=== PATIENT | female | born 1950 | race Caucasian/White ===

== ENCOUNTER → 2017-09-25 | Outpatient (CLI) | payer MEDICARE, BC ==
--- NOTE | 2017-09-25 09:10 | Diagnostic Imaging Report ---
PROCEDURE:ABDOMINAL ULTRASOUND COMPARISON:None. INDICATIONS:Epigastric Pain, Dyspepsia, Personal HX Colon Polyps TECHNIQUE: Diaz scale and color Doppler ultrasound FINDINGS: Image segment of the inferior vena cava and abdominal aorta are of normal caliber. Normal pancreas. Right liver span 13.8 cm. Mild increased proximal echogenicity. Portal vein diameter 0.8 cm; normal flow direction. Normal gallbladder. Several noncalcified, avascular nodules at the gallbladder fundus measuring up to 0.6 cm in diameter. At least one of these contains a polypoid appearing stalk (though no conspicuous vasculature). Wall thickness 0.3 cm. Common bile that diameter and 0.3 cm. Right kidney: 9.9 cm span Left kidney: 10.2 cm span. Both kidneys are normal. Spleen length 7.3 cm. No ascites. CONCLUSION: 1. Mild hepatic steatosis. 2. Several polypoid nodules within the gallbladder. These may represent noncalcified adherent stones or avascular polyps. Given polypoid appearance, followup evaluation in one year is recommended. Dictated by: Karan Baker M.D. on 09/25/2017 at 9:13 Electronically approved by: Karan Baker M.D. on 09/25/2017 at 9:13
== END ==
LOC: US 08:11
PROVIDERS: ATTEND Internal Medicine Gastroenterology
DX: R10.13 Epigastric pain (principal); K30 Functional dyspepsia; E66.3 Overweight; Z71.3 Dietary counseling and surveillance; Z86.010 Personal history of colon polyps
CPT/HCPCS: 76700

== ENCOUNTER 2017-09-27 14:17 | Emergency (ER) | payer MEDICARE, BC ==
[~2017-09-27] VITALS: Ht 160 cm; Wt 67.1 kg
--- NOTE | 2017-09-27 15:32 | Diagnostic Imaging Report ---
PROCEDURE: A single AP view of the chest. COMPARISON: None. INDICATIONS: RAPID HEARTRATE FINDINGS: Lines/tubes: None. Lungs: The lungs are well inflated and clear. There is no evidence of pneumonia or pulmonary edema. Pleura: There is no pleural effusion or pneumothorax. Heart and mediastinum: The heart and the mediastinum are unremarkable. Calcification of the aortic arch. Bones: No acute bony abnormality. IMPRESSION: 1. No acute cardiopulmonary disease. Anneliese Reese M.D. Dictated by: Anneliese Reese M.D. on 09/27/2017 at 15:35 Electronically approved by: Anneliese Reese M.D. on 09/27/2017 at 15:35
[2017-09-27 15:33] LABS: BASOPHILS % 0.3 % (0.0-1.0); EOSINOPHILS # (AUTO) 0.1 (0.0-0.4); HEMATOCRIT 43.7 % (34.2-44.1); HEMOGLOBIN 14.5 g/dL (12.0-16.0); LYMPHOCYTES # (AUTO) 2.5 (1.0-3.2); LYMPHOCYTES % 21.4 % (18.0-39.1); MEAN CORPUSCULAR HEMOGLOBIN 29.3 pg (28-32); MEAN CORPUSCULAR HGB CONC 33.2 g/dL (31-35); MEAN CORPUSCULAR VOLUME 88.3 fL (81-99); MONOCYTES # (AUTO) 0.8 (0.2-0.8); MONOCYTES % 7.3 % (4.4-11.3); NEUTROPHILS % 69.7 % (38.7-80.0); PLATELET COUNT 347 x10e3/uL (140-360); RED BLOOD COUNT 4.95 x10e6/uL (3.6-5.1)
[2017-09-27 15:44] LABS: INR 1.05; PARTIAL THROMBOPLASTIN TIME 25.6 seconds (23.8-35.5); PROTHROMBIN TIME 12.9 seconds (11.9-14.5)
[2017-09-27 15:51] LABS: ALANINE AMINOTRANSFERASE 16 IU/L (0-55); ALBUMIN 3.8 g/dL (3.5-5.0); ALBUMIN/GLOBULIN RATIO 1.1 (0.8-2.0); ALKALINE PHOSPHATASE 71 IU/L (40-150); ANION GAP 14.3 mmol/L (8-16); BLOOD UREA NITROGEN 11 mg/dL (7-26); BUN/CREATININE RATIO 15 (6-25); CALCIUM 9.6 mg/dL (8.4-10.2); CARBON DIOXIDE 25 mmol/L (22-29); CHLORIDE 106 mmol/L (98-107); CREATINE KINASE 40 IU/L (29-168); CREATININE, SERUM 0.71 mg/dL (0.57-1.11); EST GLOMERULAR FILTRATION RATE > 60 ML/MIN (60-); GLUCOSE 119 mg/dL (74-118); POTASSIUM 4.3 mmol/L (3.5-5.1); SODIUM 141 mmol/L (136-145)
== END 2017-09-27 17:00 | disposition home or self-care (01) ==
LOC: ER 14:17
DX: R00.0 Tachycardia, unspecified (principal); Z88.2 Allergy status to sulfonamides; Z82.49 Family history of ischemic heart disease and other diseases of the circulatory system
CPT/HCPCS: 36415; 71045; 80053; 82550; 82553; 84484; 85025; 85610; 85730; 93005; 99284

== ENCOUNTER → 2017-10-03 | Outpatient (CLI) | payer MEDICARE, BC ==
[~2017-10-03] MED LIST: SINCALIDE 3 MCG/VIAL INJ ONE
--- NOTE | 2017-10-03 18:31 | Diagnostic Imaging Report ---
Hepatobiliary Scan with Gallbladder Ejection Fraction Clinical information: 66 F with epigastric pain Report: Following intravenous administration of 7 millicuries of Tc-99m mebrofenin, dynamic images of the abdomen in the anterior projection were obtained through 30 minutes. Sincalide (CCK analog) 1.5 micrograms was administered intravenously over 30 minutes with additional imaging for determination of gallbladder ejection fraction. Perfusion to the liver is normal. Extraction of tracer from the blood pool by the liver parenchyma is normal. Tracer is seen promptly within the biliary tract. The gallbladder begins to fill by 10 minutes post-injection of tracer and fills adequately. Tracer is seen in the small bowel by 15 minutes. The gallbladder ejection fraction with administration of sincalide is 92% (normal greater than 40%). Impression: 1. Filling of the gallbladder excludes the diagnosis of acute cystic duct obstruction/acute cholecystitis. 2. Normal gallbladder ejection fraction of 92% does not support the clinical diagnosis of chronic cholecystitis/gallbladder dyskinesia. Signed by: Dr. Nasreen Wray M.D. on 10/03/2017 6:28 PM
== END ==
LOC: NM 11:12
PROVIDERS: ATTEND Internal Medicine Gastroenterology
DX: R10.13 Epigastric pain (principal); R93.8 Abnormal findings on diagnostic imaging of other specified body structures
CPT/HCPCS: 78227; A9537; J2805

== ENCOUNTER → 2017-10-22 | Outpatient (CLI) | payer MEDICARE, BC ==
[~2017-10-22] MED LIST changes: +DIATRIZOATE MEGL/DIATRIZOA SOD 30 ML BTL PO ONE; +IOPAMIDOL 370 MG/ML 200 ML INFUS..BTL INJ ONE; -SINCALIDE 3 MCG/VIAL INJ ONE; +SODIUM CHLORIDE 0.9% 50ML 50 ML ONE
--- NOTE | 2017-10-22 11:01 | Diagnostic Imaging Report ---
PROCEDURE: CT ABDOMEN AND PELVIS WITH CONTRAST TECHNIQUE: The abdomen and pelvis were scanned utilizing a multidetector helical scanner from the diaphragm to the lesser trochanter after the IV administration of 100 cc Isovue 370 and the oral administration of Gastrografin. Coronal and sagittal multiplanar reformations were obtained. COMPARISON: Abdominal ultrasound 09/25/2017. INDICATIONS: CECAL MASS FINDINGS: LOWER THORAX: Normal. HEPATOBILIARY: No focal hepatic lesion or intrahepatic biliary ductal dilatation. Small radiopaque calculi within the gallbladder versus gallbladder polyps as described on comparison abdominal ultrasound. SPLEEN: No splenomegaly. PANCREAS: No focal masses or ductal dilatation. ADRENALS: No adrenal nodules. KIDNEYS/URETERS: No hydronephrosis, stones, or solid mass lesions. PELVIC ORGANS/BLADDER: Urinary bladder is unremarkable. The uterus is not identified and has presumably been removed. No adnexal mass. PERITONEUM / RETROPERITONEUM: No ascites. No pneumoperitoneum. LYMPH NODES: No pelvic sidewall, retroperitoneal, or mesenteric lymphadenopathy. VESSELS: The abdominal aorta and major branch vessels are notable for atherosclerotic calcification without aneurysmal dilatation. Portal vein, splenic vein, and central superior mesenteric vein are patent. GI TRACT: The large bowel shows no distention or wall thickening. Sigmoid colon and rectum are collapsed and poorly evaluated. Concentric wall thickening of the cecum presumably corresponds to the provided clinical history of cecal mass, best appreciated on sagittal series 300 image 43. No small bowel dilatation to suggest obstruction. BONES AND SOFT TISSUES: No focal soft tissue abnormalities. Calcified injection granulomata in the subcutaneous fat of the gluteal regions.. IMPRESSION: No acute intra-abdominal or pelvic CT abnormalities. Concentric wall thickening of the cecum presumably corresponds to the endoscopically identified cecal mass. No regional mesenteric lymphadenopathy or evidence of distant metastases. Polypoid lesions in the gallbladder, seen to better advantage on comparison ultrasound 09/25/2017. For details and recommendations please refer to the report for the sonographic examination. Atherosclerotic vascular disease. Dictated by: Song Manzo M.D. on 10/22/2017 at 11:06 Electronically approved by: Song Manzo M.D. on 10/22/2017 at 11:06
== END ==
LOC: CT 09:44
PROVIDERS: ATTEND Internal Medicine Gastroenterology
DX: R10.13 Epigastric pain (principal); K63.9 Disease of intestine, unspecified; K30 Functional dyspepsia; K57.30 Diverticulosis of large intestine without perforation or abscess without bleeding; K64.9 Unspecified hemorrhoids
CPT/HCPCS: 74177; Q9967

== ENCOUNTER → 2018-06-04 | Outpatient (CLI) | payer MEDICARE, BC ==
--- NOTE | 2018-06-04 10:15 | Diagnostic Imaging Report ---
MRI of the right shoulder without contrast. History: Shoulder pain. Impingement syndrome. Decreased range of motion. Pain not responding to conservative management. Comparison: None Technique: Coronal PD FS, sagital PD FS, and axial PD and PD FS. Findings: Rotator cuff: There is mild rotator cuff tendinosis without tear, muscle atrophy or retraction. Osseous acromion complex: There is a type II acromion with mild lateral downsloping. There is mild degenerative arthrosis at the acromioclavicular joint with undersurface spurring and mild narrowing supraspinatus tendon outlet best seen on sagittal series 5 image 11. Glenohumeral joint: There is mild degeneration and fraying of the labrum. There is a physiologic amount of fluid in the shoulder joint. The articular cartilage surfaces are intact. The humeral head is well-seated in the glenoid fossa. Biceps tendon: The biceps tendon is intact. Other findings: Negative for muscle denervation or osseous fracture. Impression: Mild rotator cuff tendinosis without tear, muscle atrophy or retraction. Mild degenerative arthrosis at the acromioclavicular joint with undersurface spurring and mild narrowing supraspinatus tendon outlet Signed by: Dr. Zafar Ovalle M.D. on 06/04/2018 10:12 AM
== END ==
LOC: MRI 08:41
PROVIDERS: ATTEND Specialist
DX: M75.41 Impingement syndrome of right shoulder (principal)